=== PATIENT | female | born 1960 | race Asian ===

== ENCOUNTER 2022-03-12 23:55 | Emergency (ER) | payer OTHER ==
[2022-03-13] MEDS ORDERED: TETANUS/DIPHTHERIA/PERTUSSIS 0.5 ML SYRINGE IM ONE (00:24)
[2022-03-13] MEDS ORDERED: AMOX/CLAV 875 MG/125 MG TABLET PO STA (00:24)
--- NOTE | 2022-03-13 01:01 | XRAY Report ---
PROCEDURE: Finger(s) LT INDICATIONS: thumb laceration TECHNIQUE: AP hand, 2 views of the first digit acquired. COMPARISON: None. FINDINGS: Bones: There is a mildly displaced fracture through the tuft of the first distal phalanx. No suspicio us bony lesions. Soft tissues: There is a soft tissue laceration of the first digit distally with soft tissue swellin g. No suspicious soft tissue calcifications. IMPRESSION: 1. Mildly displaced fracture of the first distal phalanx. Reviewed by: Armando Ames MD on 03/13/2022 1:00 AM PDT Approved by: Armando Ames MD on 03/13/2022 1:00 AM PDT Station ID: [id number]
[2022-03-13] MEDS ORDERED: oxyCODONE/ACET 5/325 Prepack 4 PO STA (01:40)
--- NOTE | 2022-03-13 01:44 | ED Physician Documentation ---
PD HPI UPPER EXT INJURY - Stated complaint Stated Complaint: BOTH HAND DOG BITE - Chief complaint Chief Complaint: Laceration - History obtained from History obtained from: Patient - History of Present Illness Location: Both, Hand Type of injury: Other (Dog bite) - Additonal information Additional information: Patient is a 61-year-old female with no significant past medical history presenting for dog bite injuries to bilateral hands that occurred just prior to arrival. She is taking care of her daughters dog and was trying to get the dog outsideFor it to pee. The dog did not want to and so she was trying to force the dog outside when it bit her. It bit her on both hands. She is unsure of her last tetanus. The dog's immunizations are up-to-date.She does not take a blood thinner. Review of Systems Constitutional: denies: Fever Nose: denies: Congestion Cardiac: denies: Chest pain / pressure Respiratory: denies: Dyspnea GI: denies: Abdominal Pain : denies: Dysuria Skin: reports: Laceration (s) Musculoskeletal: reports: Extremity pain Neurologic: denies: Headache PD PAST MEDICAL HISTORY - Past Medical History Past Medical History: No - Past Surgical History Past Surgical History: Yes General: Appendectomy - Present Medications Home Medications: Ambulatory Orders Medication Instructions Recorded Confirmed Amox/Clav 875/125 [Augmentin] 1 each PO Q12H #20 tablet 03/13/22 - Allergies Allergies/Adverse Reactions: Allergies Allergy/AdvReac Type Severity Reaction Status Date / Time No Known Drug Allergies Allergy Verified 03/12/22 23:57 - Social History Does the pt smoke?: No Smoking Status: Never smoker Does the pt drink ETOH?: Yes Does the pt have substance abuse?: No - Immunizations Immunizations are current?: No PD ED PE NORMAL - General General: Alert and oriented X 3, No acute distress, Well developed/nourished - HEENT HEENT: Atraumatic, Moist mucous membranes - Neck Neck: Supple, no meningeal sign - Respiratory Respiratory: No respiratory distress - Extremities Extremities: Other (3 puncture wounds to right hand, laceration to distal left thumb involving nailbed, full range of motion at all joints, Brisk cap refill in all digits, Sensation grossly intact) PD ED PE EXPANDED - Extremities AGNES UE/Hands Visual: 1 - laceration 2 - laceration 3 - laceration 4 - laceration Results - Vitals Vitals: Vital Signs - 24 hr 03/12/22 03/13/22 23:57 01:53 Temperature 36.5 C 36.5 C Heart Rate 99 88 Respiratory 16 16 Rate Blood Pressure 150/90 H 138/81 H O2 Saturation 96 99 Oxygen O2 Source Room air Procedures - Laceration (location) Left thumb Wound type: Linear, Clean Neurovascular status: Sensory intact, Motor intact, Vascular intact Tendon involvement: Tendon intact Anesthesia: Lidocaine 1% Wound preparation: Hibiclens, Irrigated copiously NS Skin layer closure: Nylon, Dermabond (To nail), Interrupted, Sutures - enter # (2) Other: Patient tolerated well, No complications, Neurovascular intact, Dressing applied, Tetanus booster given PD MEDICAL DECISION MAKING - ED course Complexity details: reviewed results, re-evaluated patient ED course: Patient with dog bite injuries to bilateral hands, left thumb is the most severe of the injuries. X-ray obtained demonstrates a distal phalanx fracture. Wound was copiously irrigated and sutured. Nail Laceration was Dermabond did. A splint was applied as was a dressing. Right hand puncture wounds were cleaned but not closed. Patient was started on Augmentin. She is aware of need for close follow-up with Orthopedic surgeon, particularly regarding her injury to the left thumb.Patient was counseled on return precautions.Tetanus was updated. Departure - Departure Disposition: 01 Home, Self Care Clinical Impression: Dog bite of multiple sites of hand and fingers Qualifiers: Encounter type: initial encounter Laterality: unspecified laterality Qualified Code(s): S61.459A - Open bite of unspecified hand, initial encounter Laceration of left thumb with damage to nail Qualifiers: Encounter type: initial encounter Foreign body presence: without foreign body Qualified Code(s): S61.112A - Laceration without foreign body of left thumb with damage to nail, initial encounter Fracture of thumb Qualifiers: Encounter type: initial encounter Fracture type: open Phalanx: distal Fracture alignment: nondisplaced Laterality: left Qualified Code(s): S62.525B - Nondisplaced fracture of distal phalanx of left thumb, initial encounter for open fracture Condition: Stable Instructions: ED Bite Dog, ED Fx Finger Open, ED Laceration Hand Follow-Up: Chinedu White MD [Provider Admit Priv/Credential] - Prescriptions: Amox/Clav 875/125 [Augmentin] 1 each PO Q12H #20 tablet Comments: You were treated for dog bite injuries to both hands. Your left thumb suffered a laceration and a fracture. The laceration was repaired with 2 stitches and skin glue to hold the nail together. We have also applied a splint as there is an underlying fracture. You need to have close follow-up with an orthopedic doctor. Please call Dr. White's office In the morning for close follow-up. The stitches should be removed in 1 week or at the discretion of your orthopedic surgeon. Please keep the splint on and a clean dressing to the wound. I have also prescribed an antibiotic called Katia and sent the prescription to [facility] in [place]. You have also been given a small amount of narcotic pain medication to use if needed for severe pain. Otherwise you can use acetaminophen or ibuprofen. Please also elevate the hand as this may help with swelling and pain. If you have any worsening symptoms please return to the emergency department. I am prescribing a short course of narcotic pain medication for you. These are potentially dangerous and addictive medications that should be used carefully. These medications may constipate you. Take an iddd-gfe-pkatumr stool softener (docusate) twice daily with plenty of water while taking these medications. If you go 24 hours without a bowel movement, take [id number] miralax, per package instructions. Do not drink or drive while taking these medications. If you received narcotic or sedating medications while in the emergency department, do not drive for 24 hours. Store this medication in a safe, secure place and out of reach of children. It is a violation of federal law to give or sell this medication to another person or to use in a manner other than prescribed. The ED will not refill narcotic prescriptions, including prescriptions lost or stolen. To dispose of unwanted medications: 1. [facility] at [address] in [place] has a medication drop box. They accept prescription medications (in pill form) Saturday through Saturday 9:00 a.m. to 5:00 p.m. 2. The [facility] [employer] accepts prescription medications (in pill form only) for disposal year round. Call for more information. 3. Contact the [facility] for the next [facility] sponsored prescription drug collection event. , [phone], or [phone]; Note that many narcotic pain relievers also contain Tylenol/acetaminophen. Please ensure that your total dose of acetaminophen from all sources does not exceed 3 g (3000 mg) per day. Discharge Date/Time: 03/13/22 01:54
[2022-03-13 01:54] VITALS: BP 138/81
== END 2022-03-13 01:54 | disposition home or self-care (01) ==
LOC: ED 23:55
DX: S62.525B Nondisplaced fracture of distal phalanx of left thumb, initial encounter for open fracture (principal); S61.451A Open bite of right hand, initial encounter; W54.0XXA Bitten by dog, initial encounter; Z23 Encounter for immunization
CPT/HCPCS: 12001; 73140; 90471; 90715; 99283; A9270

== ENCOUNTER 2024-01-22 11:59 | Emergency (ER) | payer OTHER ==
[2024-01-22 12:18] VITALS: BP 140/80; O2SAT 98
--- NOTE | 2024-01-22 13:44 | XRAY Report ---
PROCEDURE: Foot 3+V LT INDICATIONS: pain TECHNIQUE: 3 views of the foot were acquired. COMPARISON: None. FINDINGS: Bones: No fractures or dislocations. No suspicious bony lesions. Soft tissues: No tibiotalar joint effusion. Achilles tendon appears normal. IMPRESSION: No visualized acute fracture or dislocation. However, occult injury cannot be excluded. Recommend maximilian rt interval imaging follow-up in 7-10 days as clinically indicated for additional evaluation. Reviewed by: Rosio Payne MD on 01/22/2024 1:43 PM PDT Approved by: Rosio Payne MD on 01/22/2024 1:43 PM PDT Station ID: [id number]
--- NOTE | 2024-01-22 14:05 | ED Physician Documentation ---
History of Present Illness - Stated complaint Stated Complaint: LT FOOT PX - Chief complaint Chief Complaint: Ext Problem - History obtained from History obtained from: Patient - Additonal information Additional information: Patient is a 63-year-old female who presents with left great toe pain which started a few days ago. She denies any acute injury. She states she was in hallway, and eating a lot of seafood and consuming alcohol she does not regularly consume alcohol, and then developed tenderness at the base of the left great toe. There is mild redness and swelling. She states that her more yesterday seems to be somewhat better today but still very uncomfortable particular when she is walking. She has not attempted any medication for this. No history of gout. Review of Systems Constitutional: reports: Reviewed and negative Skin: reports: Reviewed and negative Musculoskeletal: reports: Joint pain Neurologic: reports: Reviewed and negative PD PAST MEDICAL HISTORY - Past Medical History Past Medical History: Yes Cardiovascular: Hypertension - Past Surgical History Past Surgical History: Yes General: Appendectomy - Present Medications Home Medications: Ambulatory Orders Medication Instructions Recorded Confirmed Amox/Clav 875/125 [Augmentin] 1 each PO Q12H #20 tablet 03/13/22 methylPREDNISolone [Medrol] 4 mg PO DAILY #1 tab 01/22/24 - Allergies Allergies/Adverse Reactions: Allergies Allergy/AdvReac Type Severity Reaction Status Date / Time No Known Drug Allergies Allergy Verified 01/22/24 12:14 - Social History Does the pt smoke?: No Smoking Status: Never smoker Does the pt drink ETOH?: Yes Does the pt have substance abuse?: No - Immunizations Immunizations are current?: No - POLST Patient has POLST: No PD ED PE NORMAL - Vitals Vital signs reviewed: Yes - General General: Alert and oriented X 3, No acute distress, Well developed/nourished - Derm Derm: Normal color, Warm and dry, Other (Light redness in the base of the first MTP joint of the left foot, no cellulitis no abscess.) - Extremities Extremities: Other ( tenderness of the left first MTP joint, no other areas of tendernessIn the extremities. No bony deformities) Results - Vitals Vitals: Vital Signs - 24 hr 01/22/24 12:14 Temperature 36.8 C Heart Rate 85 Respiratory 16 Rate Blood Pressure 140/80 H O2 Saturation 98 Oxygen O2 Source Room air - Rads (name of study) No standard instances Relevant Findings:: Final report received PD Medical Decision Making - ED course Complexity details: reviewed results, considered differential, d/w patient ED course: 63-year-old female presented with tenderness of the left great toe as described in HPI. On exam she has mild swelling and localized redness to the left first MTP joint, no other areas of Pain and had no traumatic injuries to the area. An x-ray was obtained which is reassuring, and her physical exam is consistent with likely gout. She does not have signs of septic joint, is nontoxic, afebrile, and has not attempted any medication for this issue. I will go ahead and start her on a course of steroids and she was advised to use Tylenol as needed. She was encouraged to avoid alcohol and I discussed additional diet recommendations for gout. Return precaution reviewed in detail if new or worsening symptoms. Departure - Departure Disposition: 01 Home, Self Care Clinical Impression: Gout Qualifiers: Gout site: toe Gout etiology: idiopathic Chronicity: acute Laterality: left Qualified Code(s): M10.072 - Idiopathic gout, left ankle and foot Condition: Good Instructions: Gout Attack Tx, ED Diet Gout Prescriptions: methylPREDNISolone [Medrol] 4 mg PO DAILY #1 tab Comments: Your pain is likely due to gout. Please avoid alcohol and additional dietary recommendations as listed on attached paperwork. You can take ibuprofen or Tylenol and I have also given you a course of steroids which should improve the pain. If no improvement in the next 5 days or so or if you develop a fever, increasing redness swelling or new concerns, return to the ER. Forms: PCP List Discharge Date/Time: 01/22/24 14:51
== END 2024-01-22 14:51 | disposition home or self-care (01) ==
LOC: ED 11:59
DX: M10.072 Idiopathic gout, left ankle and foot (principal); I10 Essential (primary) hypertension
CPT/HCPCS: 99283